=== PATIENT | male | born 1945 | race Caucasian/White ===

== ENCOUNTER 2016-09-16 16:19 | Emergency (ER) | payer MEDICARE ==
[2016-09-16] MEDS ORDERED: Catapres 0.1 MG ONE ×2 (17:55→18:43)
--- NOTE | 2016-09-16 17:56 | ERPHSYRPT ---
- History of Present Illness Time Seen by Provider: 09/16/16 16:45 Source: patient Exam Limitations: no limitations Patient Subjective Stated Complaint: hypertension at home Triage Nursing Assessment: pt brought in today by siblings due to bp elevated. pt is mildly mentally and lives by himself with siblings watching over him. brother states bp 'stroke level' at home. no dificit at present. pt denies pain , agudelo, blurred or double vision. answers all questions without diff. gait steady. Physician History: No changed or missed meds. Absolutely no SX. Timing/Duration: today Severity: mild Associated Symptoms: denies symptoms Allergies/Adverse Reactions: No Known Drug Allergies Allergy (Unverified 09/16/16 16:47) Home Medications: Atorvastatin Calcium [Lipitor 20MG Tablet] 20 mg PO DAILY 09/16/16 [History] Enalapril Maleate [Vasotec] 20 mg PO DAILY 09/16/16 [History] Glipizide 10 mg [Glucotrol 10 MG] 5 mg PO BID 09/16/16 [History] Insulin Detemir [Levemir] 35 unit SQ DAILY 09/16/16 [History] Metformin HCl 1000 mg [Glucophage 1000 MG] 1,000 mg PO BID 09/16/16 [History] Metoprolol Succinate [Toprol Xl] 50 mg PO DAILY 09/16/16 [History] Hx Tetanus, Diphtheria Vaccination/Date Given: Yes Hx Influenza Vaccination/Date Given: No Hx Pneumococcal Vaccination/Date Given: No Immunizations Up to Date: Yes - Review of Systems Constitutional: No Symptoms Eyes: No Symptoms Ears, Nose, & Throat: No Symptoms Respiratory: No Symptoms Cardiac: No Symptoms Abdominal/Gastrointestinal: No Symptoms Genitourinary Symptoms: No Symptoms Musculoskeletal: No Symptoms Skin: No Symptoms Neurological: No Symptoms Psychological: No Symptoms Endocrine: No Symptoms Hematologic/Lymphatic: No Symptoms - Past Medical History Pertinent Past Medical History: Yes Cardiac History: Hypertension Endocrine Medical History: Diabetes Type II - Past Surgical History Past Surgical History: No - Social History Smoking Status: Never smoker Exposure to second hand smoke: Yes Drug Use: none Patient Lives Alone: Yes - Nursing Vital Signs Nursing Vital Signs: Initial Vital Signs Temperature 97.5 F Temperature Source Oral Pulse Rate 62 Respiratory Rate 18 Blood Pressure 176/96 Pain Intensity 0 - Physical Exam SpO2: 97 Oxygen Delivery: Room Air - Course Nursing assessment & vital signs reviewed: Yes - Progress Progress: improved Counseled pt/family regarding: need for follow-up (PCP 1 day) - Departure Time of Disposition: 18:00 Departure Disposition: Home Clinical Impression: Hypertension Qualifiers: Hypertension type: unspecified secondary hypertension Qualified Code(s): I15.9 - Secondary hypertension, unspecified; I15 - Secondary hypertension Condition: Stable Critical Care Time: No
[2016-09-16] MEDS ORDERED: Catapres 0.1 MG PO ONE ×2 (17:57→18:41)
[2016-09-16 19:11] VITALS: BP 186/90; PULSE 76; O2SAT 100
== END 2016-09-16 19:10 | disposition home or self-care (01) ==
LOC: ED 16:19
DX: I15.9 Secondary hypertension, unspecified (principal); E11.9 Type 2 diabetes mellitus without complications; I10 Essential (primary) hypertension; Z79.899 Other long term (current) drug therapy
CPT/HCPCS: 36415; 80048; 83036; 99283

== ENCOUNTER 2022-07-25 11:07 | Inpatient (IN) | payer MEDICARE ==
[2022-07-25 11:51] LABS: Hematocrit 47.1 % (42-50); Hemoglobin 15.6 g/dL (12.5-18.0); Mean Cell Volume 91.5 fL (78-100); Mean Corpuscular Hemoglobin 30.3 pg (26-32); Mean Corpuscular Hgb Concent. 33.1 g/dL (32-36); Mean Platelet Volume 12.3 fL (7.5-11.0); Platelet Count 134 x10^3/uL (150-450); Red Blood Count 5.15 x10^6/uL (4.1-5.6); Red Cell Distribution Width 12.7 % (11.5-14.0); White Blood Count 17.5 x10^3/uL (4.0-10.5)
[2022-07-25] MEDS ORDERED: Sodium Chloride 0.9% 1000 ML 1,000 ML IV STA (11:56)
[2022-07-25] MEDS ORDERED: Sodium Chloride 0.9% 1000 ML 1,000 ML ONE ×2 (12:00→13:19)
[2022-07-25 12:04] LABS: ALBUMIN 4.2 g/dL (3.5-5.0); ANION GAP 17.4 MEQ/L (5-15); BILIRUBIN,TOTAL 1.1 mg/dL (0.2-1.3); Calcium 8.9 mg/dL (8.4-10.2); Creatinine 1 1.49 mg/dL (0.66-1.25); EST GLOMERULAR FILTRATION RATE 48.7 ML/MIN
[2022-07-25 12:07] LABS: Potassium 6.5 mmol/L (3.5-5.1)
[2022-07-25] MEDS ORDERED: HUMULIN R IV ONE (12:11)
[2022-07-25] MEDS ORDERED: Calcium Gluconate 10% 1000 MG IV ONE ×2 (12:11→12:41)
[2022-07-25] MEDS ORDERED: Kayexylate 15 GM/60 ML PO ONE (12:11)
[2022-07-25] MEDS ORDERED: SODIUM BICARBONATE 50 MEQ/50 ML ABBOJECT IV ONE ×2 (12:11→12:43)
[2022-07-25] MEDS ORDERED: D50W 50 ml Abboject IV ONE ×2 (12:11→12:43)
[2022-07-25 12:36] LABS: PROCALCITONIN 0.554 ng/mL (0.030-0.080)
[2022-07-25] MEDS ORDERED: Kayexylate 15 GM/60 ML ONE (12:42)
[2022-07-25] MEDS ORDERED: HUMULIN R ONE (12:42)
[2022-07-25] MEDS ORDERED: PIPERACILLIN/TAZOBACTAM 3.375 GM in Sodium Chloride 100ML MINI-BAG PLUS 100 ML IV ONE (13:06)
[2022-07-25] MEDS ORDERED: CLINDAMYCIN-D5W 600 MG/50 ML*** 600 MG/50 ML BAG IV STA ×2 (13:06→14:20)
[2022-07-25] MEDS ORDERED: PIPERACILLIN/TAZOBACTAM IV ONE (13:09)
[2022-07-25] MEDS ORDERED: Sodium Chloride 100ML MINI-BAG PLUS 100 ML IV ONE (13:09)
--- NOTE | 2022-07-25 13:12 | ERPHSYRPT ---
- History of Present Illness Time Seen by Provider: 07/25/22 11:55 Source: patient Exam Limitations: physical impairment Patient Subjective Stated Complaint: Patient fell at home and could not get up on his own. Patient's brother who lives next door called for the ambulance to assist him up. Ambulance then brought patient here to be evaluated. Patient denies any pain and is unable to state how or why he fell. Patient currently has no complaints. Ambulance personel state that patient is "special needs" and that brother is on his way here to be with patient. Triage Nursing Assessment: Patient is alert to self and place. Patient with noted forceful breathing out of his nose. No cough noted. Lower right leg is noted to be purple/pink in color and cool to touch; pedal pulse present with doppler. Inner right lower leg and posterior right lower leg with burst blisters noted. LLE is warm to touch. BLE with 2+ pitting edema noted. Patient is able to EDWARDS WNL without difficulties. Patient cooperative with staff. Patient is diaphoretic. Physician History: 77 years old male with history of hypertension, hyperlipidemia, diabetes mellitus, mentally not very sound lives alone and brother helps him with routine activities was found sitting on the floor with legs crossed when brother went this morning to give him his medications. Patient is not in any distress, denies pain anywhere. Moving all 4 extremities. No nausea vomiting or difficulty breathing. At his baseline otherwise but does have swelling and redness of right lower extremity which brother think is new overnight. Occurred: this morning Reason for Fall: unknown Injuries/Pain Location: lower Loss of Consciousness: no loss of consciousness Severity of Pain-Max: none Severity of Pain-Current: none Modifying Factors: Improves With: nothing Associated Symptoms (Fall): extremity injury, No abdominal pain, No confusion, No seizures, No shortness of breath, No slurred speech, No vision changes Allergies/Adverse Reactions: No Known Drug Allergies Allergy (Verified 07/25/22 11:11) Home Medications: Amlodipine Besylate 5 mg [Norvasc 5 mg] 1 tab PO DAILY 07/25/22 [History] Atorvastatin Calcium [Lipitor 20MG Tablet] 1 tab PO HS 07/25/22 [History] Benazepril HCl [Lotensin] 1 tab PO DAILY 07/25/22 [History] Carvedilol [Coreg ] 1 tab PO BID 07/25/22 [History] Glipizide 10 mg [Glucotrol 10 MG] 1 tab PO BID 07/25/22 [History] Sitagliptin Phosphate 50 MG [Januvia 50 MG] 1 tab PO DAILY 07/25/22 [History] Hx Tetanus, Diphtheria Vaccination/Date Given: (unknown) Hx Influenza Vaccination/Date Given: (unknown) Hx Pneumococcal Vaccination/Date Given: (unknown) Immunizations Up to Date: (unknown) Travel Risk - International Travel Have you traveled outside of the country in past 3 weeks: No - Coronavirus Screening Are you exhibiting any of the following symptoms?: No Close contact with a COVID-19 positive Pt in past 14-21 Days: No - Vaccine Status Have you recieved a Covid-19 vaccination: (UNKNOWN) - Review of Systems Constitutional: No Symptoms Eyes: No Symptoms Ears, Nose, & Throat: No Symptoms Respiratory: No Symptoms Cardiac: No Symptoms Abdominal/Gastrointestinal: No Symptoms Genitourinary Symptoms: No Symptoms Musculoskeletal: Fall, Injury Skin: Cellulitis Neurological: No Symptoms Immunological/Allergic: No Symptoms - Past Medical History Pertinent Past Medical History: Yes Cardiac History: High Cholesterol, Hypertension Endocrine Medical History: Diabetes Type II - Past Surgical History Past Surgical History: No Other Surgical History: Patient denies surgeries - Social History Smoking Status: Never smoker Exposure to second hand smoke: No Drug Use: none Patient Lives Alone: Yes (brother next door) - Nursing Vital Signs Nursing Vital Signs: Initial Vital Signs Temperature 98 F 07/25/22 11:15 Pulse Rate 83 07/25/22 11:15 Respiratory Rate 26 H 07/25/22 11:15 Blood Pressure 196/102 07/25/22 11:15 O2 Sat by Pulse Oximetry 95 07/25/22 11:15 Pain Scale Pain Intensity 0 - Jorge Coma Score Best Eye Response ([place]): (4) open spontaneously Best Verbal Response (Jorge): (5) oriented Best Motor Response (Jorge): (6) obeys commands Jorge Total: 15 - Physical Exam General Appearance: no apparent distress, alert Head Injury: no evidence of injury, No active bleeding, No Eng's Sign, No contusions, No tenderness Eye Exam: PERRL/EOMI, eyes nml inspection ENT Exam: airway nml, No evidence of ENT injury, No dental injury Neck Exam: supple, trachea midline, full range of motion, normal alignment Respiratory/Chest Exam: normal breath sounds, respiratory distress, No chest tenderness Cardiovascular Exam: normal heart sounds, regular rate/rhythm Gastrointestinal Exam: soft, normal bowel sounds, No tenderness Back Exam: normal inspection, normal range of motion, No CVA tenderness Extremity Exam: normal range of motion, inflammation (Right lower extremity diffuse erythema with minimal tenderness, superficial skin breakdown, mild increased temperature. No bony tenderness.) Neurologic Exam: alert, oriented x 3, cooperative, [employer] II-XII nml as tested, se nsation nml, motor deficits, No normal mood/affect SpO2 Interpretation: normal SpO2: 93 O2 Delivery: Room Air Ordered Tests: Active Orders 24 hr Category Date Time Status IV Insertion STAT Care 07/25/22 11:56 Active NPO (ED) STAT Care 07/25/22 11:56 Active CERVICAL SPINE WO CONTRAST [CT] Stat Exams 07/25/22 11:57 Taken CHEST 1 VIEW (PORTABLE) Stat Exams 07/25/22 11:56 Taken HEAD WITHOUT CONTRAST [CT] Stat Exams 07/25/22 11:57 Taken LOWER LEG Stat Exams 07/25/22 12:00 Taken BLOOD CULTURE Stat Lab 07/25/22 12:45 Received BNP [NT PRO BNP] Stat Lab 07/25/22 11:57 Completed CBC Stat Lab 07/25/22 11:37 Completed CK (IN-HOUSE) [CK-Creatinine Phosphokinase] Stat Lab 07/25/22 11:57 Completed CMP Stat Lab 07/25/22 11:37 Completed LIPASE Stat Lab 07/25/22 11:57 Completed Lactic Acid Stat Lab 07/25/22 11:45 Completed MAG [MAGNESIUM] Stat Lab 07/25/22 11:57 Completed NT PRO BNP Stat Lab 07/25/22 11:37 Completed PROCALCITONIN Stat Lab 07/25/22 11:57 Completed TROPONIN Q4H Lab 07/25/22 12:00 Completed TROPONIN Q4H Lab 07/25/22 16:00 Ordered TROPONIN Q4H Lab 07/25/22 20:00 Ordered UA W/RFX CULTURE Stat Lab 07/25/22 Ordered Medication Summary Generic Name Dose Route Start Last Admin Trade Name Freq PRN Reason Stop Dose Admin Sodium Chloride 1,000 mls @ 125 mls/hr 07/25/22 13:15 Sodium Chloride 0.9% 1000 Ml IV 08/24/22 13:14 .Q8H ESPERANZA Clindamycin HCl/Dextrose 600 mg in 50 mls @ 100 mls/hr 07/25/22 13:06 Clindamycin-D5w 600 Mg/50 Ml IV 07/25/22 13:35 STAT STA Piperacillin Sod/Tazobactam 100 mls @ 200 mls/hr 07/25/22 13:06 07/25/22 13:09 Sod 3.375 gm/ Sodium Chloride IV 07/25/22 13:35 200 mls/hr STAT ONE Administration Discontinued Medications Generic Name Dose Route Start Last Admin Trade Name Freq PRN Reason Stop Dose Admin Calcium Gluconate 1,000 mg 07/25/22 12:11 07/25/22 12:45 Calcium Gluconate 1000 Mg/10 Ml Vial IV 07/25/22 12:12 1,000 mg STAT ONE Administration Calcium Gluconate Confirm 07/25/22 12:41 Calcium Gluconate 1000 Mg/10 Ml Vial Administered 07/25/22 12:42 Dose 1,000 mg IV .STK-MED ONE Dextrose 50 ml 07/25/22 12:11 07/25/22 12:52 Dextrose 50%-Water 50 Ml Abboject IV 07/25/22 12:12 50 ml STAT ONE Administration Dextrose Confirm 07/25/22 12:43 Dextrose 50%-Water 50 Ml Abboject Administered 07/25/22 12:44 Dose 50 ml IV .STK-MED ONE Sodium Chloride 1,000 mls @ 999 mls/hr 07/25/22 11:56 07/25/22 13:08 Sodium Chloride 0.9% 1000 Ml IV 07/25/22 12:56 Infused .Q1H1M STA Infusion Sodium Chloride Confirm 07/25/22 12:00 Sodium Chloride 0.9% 1000 Ml Administered 07/25/22 12:01 Dose 1,000 mls @ ud .ROUTE .STK-MED ONE Sodium Chloride Confirm 07/25/22 13:09 Sodium Chloride 100ml Mini-Bag Plus Administered 07/25/22 13:10 Dose 100 mls @ ud IV .STK-MED ONE Insulin Human Regular 10 unit 07/25/22 12:11 07/25/22 12:55 Insulin Regular, Human 1 Unit IV 07/25/22 12:12 10 unit STAT ONE Administration Insulin Human Regular Confirm 07/25/22 12:42 Insulin Regular, Human 1 Unit Administered 07/25/22 12:43 Dose 10 unit .ROUTE .STK-MED ONE Piperacillin Sod/Tazobactam Sod Confirm 07/25/22 13:09 Piperacillin/Tazobactam Sodium 3.375 Gm Vial Administered 07/25/22 13:10 Dose 3.375 gm IV .STK-MED ONE Sodium Bicarbonate 50 meq 07/25/22 12:11 07/25/22 12:49 Sodium Bicarbonate 1 Meq/Ml 50ml Syringe IV 07/25/22 12:12 50 meq STAT ONE Administration Sodium Bicarbonate Confirm 07/25/22 12:43 Sodium Bicarbonate 1 Meq/Ml 50ml Syringe Administered 07/25/22 12:44 Dose 50 meq IV .STK-MED ONE Sodium Polystyrene Sulfonate 30 g 07/25/22 12:11 07/25/22 12:57 Sodium Polystyrene Sulfonate 15 G/60 Ml Bottle PO 07/25/22 12:12 30 g STAT ONE Administration Sodium Polystyrene Sulfonate Confirm 07/25/22 12:42 Sodium Polystyrene Sulfonate 15 G/60 Ml Bottle Administered 07/25/22 12:43 Dose 30 g .ROUTE .STK-MED ONE Lab/Rad Data: Laboratory Result Diagrams 07/25/22 11:37 07/25/22 11:37 Laboratory Results 07/25/22 07/25/22 07/25/22 Range/Units 12:00 11:57 11:45 WBC (4.0-10.5) x10^3/uL RBC (4.1-5.6) x10^6/uL Hgb (12.5-18.0) g/dL Hct (42-50) % MCV (78-100) fL MCH (26-32) pg MCHC (32-36) g/dL RDW (11.5-14.0) % Plt Count (150-450) x10^3/uL MPV (7.5-11.0) fL Sodium (137-145) mmol/L Potassium (3.5-5.1) mmol/L Chloride (98-107) mmol/L Carbon Dioxide (22-30) mmol/L Anion Gap (5-15) MEQ/L BUN (9-20) mg/dL Creatinine (0.66-1.25) mg/dL Estimated GFR ML/MIN Glucose (74-106) mg/dL Lactic Acid 3.6 H (0.4-2.0) Calcium (8.4-10.2) mg/dL Magnesium 2.0 (1.6-2.3) mg/dL Total Bilirubin (0.2-1.3) mg/dL AST (17-59) U/L ALT (0-50) U/L Alkaline Phosphatase (38-126) U/L Creatine Kinase 2835 H (55-170) U/L Troponin I 0.014 (0.000-0.034) ng/mL NT-Pro-B Natriuret Pep 163 (0-1800) pg/mL Serum Total Protein (6.3-8.2) g/dL Albumin (3.5-5.0) g/dL Lipase 95 (23-300) U/L Procalcitonin 0.554 H (0.030-0.080) ng/mL 07/25/22 07/25/22 Range/Units 11:37 11:37 WBC 17.5 H (4.0-10.5) x10^3/uL RBC 5.15 (4.1-5.6) x10^6/uL Hgb 15.6 (12.5-18.0) g/dL Hct 47.1 (42-50) % MCV 91.5 (78-100) fL MCH 30.3 (26-32) pg MCHC 33.1 (32-36) g/dL RDW 12.7 (11.5-14.0) % Plt Count 134 L (150-450) x10^3/uL MPV 12.3 H (7.5-11.0) fL Sodium 136 L (137-145) mmol/L Potassium 6.5 H* (3.5-5.1) mmol/L Chloride 100 (98-107) mmol/L Carbon Dioxide 25 (22-30) mmol/L Anion Gap 17.4 H (5-15) MEQ/L BUN 43 H (9-20) mg/dL Creatinine 1.49 H (0.66-1.25) mg/dL Estimated GFR 48.7 ML/MIN Glucose 333 H (74-106) mg/dL Lactic Acid (0.4-2.0) Calcium 8.9 (8.4-10.2) mg/dL Magnesium (1.6-2.3) mg/dL Total Bilirubin 1.10 (0.2-1.3) mg/dL AST 108 H (17-59) U/L ALT 37 (0-50) U/L Alkaline Phosphatase 155 H (38-126) U/L Creatine Kinase (55-170) U/L Troponin I (0.000-0.034) ng/mL NT-Pro-B Natriuret Pep 156 (0-1800) pg/mL Serum Total Protein 8.0 (6.3-8.2) g/dL Albumin 4.2 (3.5-5.0) g/dL Lipase (23-300) U/L Procalcitonin (0.030-0.080) ng/mL - Progress Progress: unchanged Progress Note: 07/25/22 13:10 Patient is not in any distress. Does have right lower extremity swelling and redness with some skin breakdown. Seems like he is developing cellulitis. He is given fluid bolus, work-up showed white count of 17 with a lactate of 3.5 and procalcitonin 0.55, given a dose of Zosyn and clindamycin. Chemistry showed potassium of 6.5 and EKG no tall T waves noted. Given medication per protocol with calcium, bicarb, dextrose, insulin and Kayexalate. CT head and cervical spine negative for any acute trauma related findings. Chest x-ray no obvious cardiopulmonary findings reviewed by me, official report is pending. X-rays right lower leg no obvious fracture dislocation reviewed by me, official report is pending again. Patient has a CK level up 2835 with a creatinine of 1.4 and BUN of 43. Will place Israel catheter for intake output monitoring, continue with fluids. Discussed with Dr. Maldonado, reviewed history, work-up and patient accepted for admission. 07/25/22 13:13 Discussed with : Lynn Will see patient in: hospital (observation) Counseled pt/family regarding: lab results, diagnosis, rad results - Departure Departure Disposition: Observation Clinical Impression: Fall, Cellulitis, leg, Rhabdomyolysis, Sepsis, Hypokalemia Condition: Stable Critical Care Time: No Referrals: ISAAK RODRÍGUEZ [Primary Care Provider] - Follow up/PCP as directed Instructions: Rhabdomyolysis
[2022-07-25] MEDS ORDERED: Sodium Chloride 0.9% 1000 ML 1,000 ML IV SCH (13:15)
[2022-07-25] MEDS ORDERED: CLINDAMYCIN-D5W 600 MG/50 ML*** 600 MG/50 ML BAG IV ONE (13:20)
[2022-07-25 13:34] LABS: INFLUENZA A NEGATIVE (NEGATIVE); INFLUENZA B NEGATIVE (NEGATIVE); RESPIRATORY SYNCTIAL VIRUS NEGATIVE (Negative); SARS-CoV-2 Xpert Express NEGATIVE (NEGATIVE)
[2022-07-25 14:05] LABS: Appearance CLEAR (CLEAR); Bilirubin NEGATIVE (NEGATIVE); Dipstick done @ ? MAIN LAB; Glucose >=1000 mg/dL (NEGATIVE); Ketones TRACE (NEGATIVE); Mucus SLIGHT /HPF (NEGATIVE); Nitrite NEGATIVE (NEGATIVE); Protein,Urine Dip >=300 (Negative); RBC LARGE Ery/ul (0-5); Specific Gravity 1.025 (1.005-1.025); Urobilinogen 0.2 mg/dL (0-1); WBC 0-2 /HPF (0-5)
[2022-07-25 14:06] LABS: Bacteria RARE /HPF (NEGATIVE); Urine Cultured Indicated? YES
[2022-07-25] MEDS ORDERED: Zofran 4 MG/2 ML VIAL IV PRN (14:20)
[2022-07-25] MEDS ORDERED: TYLENOL 325 MG PO PRN (14:20)
[2022-07-25] MEDS: PROTONIX 40 MG IV IV SCH (14:55)
--- NOTE | 2022-07-25 16:25 | XRAY ---
Indication: Status post fall. Multiple contiguous axial images obtained through the head without contrast. Comparison: None Age-appropriate global atrophy, moderate periventricular degenerative micro-ischemia bilaterally, and old left posterior parietal/left frontal infarcts. No acute intracranial hemorrhage, abnormal extra-axial fluid collection, or mass effect. Fourth ventricle is midline without hydrocephalus. Bony calvarium intact. Visualized paranasal sinuses and mastoid air cells are clear. 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 Comment: Preliminary interpretation made by [facility]. No critical discrepancy.
--- NOTE | 2022-07-25 16:27 | XRAY ---
Indication: Status post fall. Multiple contiguous axial images obtained through the cervical spine. Sagittal and coronal reformatted images obtained. Comparison: None Axial images negative for acute fracture, suspicious bone lesions, or spinal canal stenosis. Minimal/mild C3-T1 degenerative endplate spurring and mild/moderate multilevel bilateral degenerative facet hypertrophy. Also moderate atlantoaxial degenerative changes. Sagittal and coronal reformatted images demonstrates mild lordotic straightening, positional versus paraspinal spasm. Minimal multilevel degenerative disc space narrowing. No acute compression fracture, subluxation, or jumped facet. Normal appearing craniocervical junction. Visualized noncontrasted soft tissues demonstrates moderate bilateral carotid calcifications. Lung apices clear. Impression: 1. Cervical lordotic straightening, positional versus paraspinal spasm. Negative acute fracture/subluxation. 2. Multilevel degenerative changes. Comment: Preliminary interpretation made by C. No critical discrepancy.
--- NOTE | 2022-07-25 16:27 | XRAY ---
Indication: Status post fall. Comparison: None Portable chest demonstrates subtle bilateral mid to lower lung interstitial alveolar opacities and tiny right infrahilar calcified nodes. Heart not enlarged. Bony thorax intact with mild osteopenia and degenerative changes. Interstitial alveolar opacities not reported by interpretating ER clinician. Telephone report given to Dr. Hicks at 1625 hrs on Jul 25, 2022.
--- NOTE | 2022-07-25 16:35 | XRAY ---
Indication: Status post fall. Comparison: None 2 view right lower leg demonstrates osteopenia, tiny suprapatella spurring, small plantar heel spur, mild diffuse soft tissue swelling/edema, and minimal vascular calcifications. Fracture base 5th metatarsal of uncertain chronicity. No other bony, articular, or soft tissue abnormalities. Comment: 5th metatarsal fracture not reported by interpreting ER clinician. Telephone report was given to Dr. Hicks 1625 hrs. on July 25, 2022.
[2022-07-25 17:06] LABS: Calcium 9.1 mg/dL (8.4-10.2); Creatinine 1 1.56 mg/dL (0.66-1.25); EST GLOMERULAR FILTRATION RATE 46.2 ML/MIN
[2022-07-25] MEDS: HUMALOG SQ PRN (17:24)
[2022-07-25] MEDS ORDERED: PIPERACILLIN/TAZOBACTAM 3.375 GM in Sodium Chloride 100ML MINI-BAG PLUS 100 ML IV SCH (18:00)
[2022-07-25] MEDS: Piperacillin/Tazobactam 2.25 GM 2.25 GM in Sodium Chloride 100ML MINI-BAG PLUS 100 ML IV SCH (18:03)
[2022-07-25] MEDS ORDERED: DUONEB 0.5-3 MG/3 ml Neb IH SCH (19:00)
[2022-07-25] MEDS: Sodium Chloride 0.9% 1000 ML 1,000 ML IV SCH ×2 (20:16→23:12)
[2022-07-25] MEDS: Glucotrol 5 MG PO SCH (21:43)
[2022-07-25] MEDS ORDERED: Coreg 3.125 MG PO ONE (22:00)
[2022-07-26] MEDS: Piperacillin/Tazobactam 2.25 GM 2.25 GM in Sodium Chloride 100ML MINI-BAG PLUS 100 ML IV SCH ×4 (00:07→19:39)
[2022-07-26 06:34] LABS: Absolute Neutrophil Ct (ANC) 11.42 x10^3/uL (1.4-6.9); Basophil (Absolute #) 0.03 x10^3/uL (0-0.4); Eosinophil % 0.1 % (0.00-5.0); Eosinophil (Absolute #) 0.02 x10^3/uL (0-0.5); Hematocrit 37.9 % (42-50); Hemoglobin 12.3 g/dL (12.5-18.0); Lymphocytes % 11.2 % (24.0-44.0); Mean Cell Volume 92.4 fL (78-100); Mean Corpuscular Hgb Concent. 32.5 g/dL (32-36); Mean Platelet Volume 11.4 fL (7.5-11.0); Monocyte (Absolute #) 1.15 x10^3/uL (0.0-1.3); Monocytes % 8.1 % (0.0-12.0); Platelet Count 126 x10^3/uL (150-450); Red Cell Distribution Width 12.9 % (11.5-14.0); White Blood Count 14.3 x10^3/uL (4.0-10.5)
[2022-07-26 07:02] LABS: ALBUMIN 2.8 g/dL (3.5-5.0); ANION GAP 10.5 MEQ/L (5-15); Creatinine 1 1.72 mg/dL (0.66-1.25); EST GLOMERULAR FILTRATION RATE 41.3 ML/MIN; Potassium 3.4 mmol/L (3.5-5.1); Total Protein 5.8 g/dL (6.3-8.2)
[2022-07-26] MEDS: Sodium Chloride 0.9% 1000 ML 1,000 ML IV SCH ×3 (08:17→23:53)
[2022-07-26] MEDS ORDERED: Lantus Insulin SQ SCH (10:00)
[2022-07-26] MEDS ORDERED: Lotensin PO SCH (10:00)
[2022-07-26] MEDS ORDERED: Januvia 50 MG PO SCH (10:00)
[2022-07-26] MEDS ORDERED: NON-FORMULARY ITEM (Insulin Glargine,Hum.Rec.Anlog [Toujeo Solostar] 300 UNIT/ML Insuln.Pe SQ SCH (10:00)
[2022-07-26] MEDS ORDERED: NORVASC 5 MG PO SCH (10:00)
[2022-07-26] MEDS ORDERED: Sodium Chloride 0.9% 1000 ML 1,000 ML IV STA ×2 (10:06→18:04)
[2022-07-26] MEDS: Glucotrol 5 MG PO SCH ×2 (10:39→18:43)
[2022-07-26] MEDS: Coreg PO SCH ×2 (10:43→21:31)
[2022-07-26] MEDS: PROTONIX 40 MG IV IV SCH (10:44)
[2022-07-26] MEDS: HUMALOG SQ PRN ×2 (13:59→18:23)
[2022-07-26 16:27] LABS: ANION GAP 11.7 MEQ/L (5-15); Calcium 7.8 mg/dL (8.4-10.2); Creatinine 1 1.69 mg/dL (0.66-1.25); EST GLOMERULAR FILTRATION RATE 42.1 ML/MIN
[2022-07-26] MEDS ORDERED: NORVASC 5 MG PO ONE (18:04)
[2022-07-26] MEDS ORDERED: Apresoline 25 MG TABLET PO ONE (18:06)
[2022-07-26] MEDS: Apresoline 25 MG TABLET PO SCH (21:32)
[2022-07-27] MEDS: Piperacillin/Tazobactam 2.25 GM 2.25 GM in Sodium Chloride 100ML MINI-BAG PLUS 100 ML IV SCH ×5 (00:32→23:38)
[2022-07-27 04:43] LABS: Absolute Neutrophil Ct (ANC) 11.02 x10^3/uL (1.4-6.9); Basophil (Absolute #) 0.03 x10^3/uL (0-0.4); Eosinophil % 0.9 % (0.00-5.0); Eosinophil (Absolute #) 0.12 x10^3/uL (0-0.5); Hematocrit 41.8 % (42-50); Hemoglobin 13.9 g/dL (12.5-18.0); Lymphocyte (Absolute #) 1.41 x10^3/uL (1.0-4.6); Lymphocytes % 10.2 % (24.0-44.0); Mean Cell Volume 90.7 fL (78-100); Mean Corpuscular Hemoglobin 30.2 pg (26-32); Mean Corpuscular Hgb Concent. 33.3 g/dL (32-36); Mean Platelet Volume 11.9 fL (7.5-11.0); Monocyte (Absolute #) 1.24 x10^3/uL (0.0-1.3); Monocytes % 8.9 % (0.0-12.0); Neutrophil % 79.4 % (36.0-66.0); Platelet Count 118 x10^3/uL (150-450); Red Blood Count 4.61 x10^6/uL (4.1-5.6); Red Cell Distribution Width 13.2 % (11.5-14.0); White Blood Count 13.9 x10^3/uL (4.0-10.5)
[2022-07-27 05:09] LABS: ANION GAP 10.2 MEQ/L (5-15); Calcium 8.3 mg/dL (8.4-10.2); Creatinine 1 1.4 mg/dL (0.66-1.25); EST GLOMERULAR FILTRATION RATE 52.4 ML/MIN; Potassium 3.8 mmol/L (3.5-5.1)
[2022-07-27] MEDS: Coreg PO SCH (07:31)
[2022-07-27] MEDS: NORVASC 5 MG PO SCH (07:31)
[2022-07-27] MEDS: Apresoline 25 MG TABLET PO SCH ×3 (07:31→21:26)
[2022-07-27] MEDS: PROTONIX 40 MG IV IV SCH (07:32)
[2022-07-27] MEDS: Sodium Chloride 0.9% 1000 ML 1,000 ML IV SCH ×2 (09:16→16:56)
[2022-07-27] MEDS: Glucotrol 5 MG PO SCH (09:58)
--- NOTE | 2022-07-27 10:56 | XRAY ---
Indication: Cellulitis. Two-dimensional sonogram and color Doppler imaging of the major venous vessels of the right leg performed. Comparison: None No thrombus seen in the examined deep venous vessels of the right leg including greater saphenous vein. Veins demonstrate normal compressibility. Venous waveforms are normal with and without augmentation. Impression: Right leg negative for DVT.
--- NOTE | 2022-07-27 15:58 | PCM.CONS ---
Podiatry HPI - Consult Date of Consultation Date: 07/27/22 Reason for Consult: Cellulitis + 5th metatarsal fracture Consulting Provider: LONNIE HOOK DPM - [facility] History of Present Illness: Shalom is a very pleasant 77-year-old male who presents with admission for a fall and sepsis with no identifiable source. Patient fell on Wednesday and was found by his brother who lives next door brought to the emergency room and determined to have sepsis and cellulitis to the right lower extremity. X-rays were taken demonstrating 1/5 metatarsal fracture for which I was consulted for. Patient does have minimal pitting edema to the right lower extremity patient's subjective examination is limited due to patient's mental status. No other pedal complaints at this time Medications & Allergies Home Medications: Home Medication List Amlodipine Besylate 5 mg [Norvasc 5 mg] 1 tab PO DAILY 07/25/22 [History Confirmed 07/25/22] Atorvastatin Calcium [Lipitor 20MG Tablet] 1 tab PO HS 07/25/22 [History Confirmed 07/25/22] Benazepril HCl [Lotensin] 1 tab PO DAILY 07/25/22 [History Confirmed 07/25/22] Carvedilol [Coreg ] 6.25 mg PO BID 07/25/22 [History Confirmed 07/25/22] Glipizide 10 mg [Glucotrol 10 MG] 1 tab PO BID 07/25/22 [History Confirmed 07/25/22] Insulin Glargine,Hum.rec.anlog [Fareed Brush] 50 unit SQ DAILY 07/25/22 [History Confirmed 07/25/22] Sitagliptin Phosphate 50 MG [Januvia 50 MG] 1 tab PO DAILY 07/25/22 [History Confirmed 07/25/22] Allergies/Adverse Reactions: Allergies Allergy/AdvReac Type Severity Reaction Status Date / Time No Known Drug Allergies Allergy Verified 07/25/22 11:11 - Past Medical History Past Medical History: Yes Cardiac History: High Cholesterol, Hypertension Endocrine Medical History: Diabetes Type II - Past Surgical History Past Surgical History: No Other Surgical History: Patient denies surgeries - Social History Smoking Status: Former smoker Exposure to second hand smoke: No Alcohol: None Drug Use: none Physical Exam - General General Appearance: no apparent distress - Neuro Neurologic: Epicritic and protopathic - Vascular Peripheral Pulses: Posterior tibialis: 2+, Dorsalis-Pedis: 2+ Capillary Refill Time: < 3 seconds Hair Growth: Symmetrical and Bilateral Varicosities: Positive Edema: Pitting Edema Degree: 2+ Skin: Supple, not atrophic Skin Temperature: Warm to touch - Muscular Muscle Strength: Pain with (Pain with provocation eversion right foot) Digital Deformity: no digital deformities - Narrative Narrative Physical Exam: Podiatry Physical Exam Cellulitis noticed to the right leg extending from the Rd malleoli are area to the mid calf. 2 large blisters to the posterior medial aspect of the right leg proximal large blister has been compressed. Brawny edema noted to the right lower extremity. Results - Labs Lab/Micro Results: Lab Results-Last 24 Hours 07/26/22 07/26/22 07/26/22 Range/Units 16:12 16:41 20:25 WBC (4.0-10.5) x10^3/uL RBC (4.1-5.6) x10^6/uL Hgb (12.5-18.0) g/dL Hct (42-50) % MCV (78-100) fL MCH (26-32) pg MCHC (32-36) g/dL RDW (11.5-14.0) % Plt Count (150-450) x10^3/uL MPV (7.5-11.0) fL Gran % (36.0-66.0) % Immature Gran % (Auto) (0.00-0.4) % Nucleat RBC Rel Count (0.00-0.1) % Eos # (Auto) (0-0.5) x10^3/uL Immature Gran # (Auto) (0.00-0.03) x10^3u/L Absolute Lymphs (auto) (1.0-4.6) x10^3/uL Absolute Monos (auto) (0.0-1.3) x10^3/uL Absolute Nucleated RBC (0.00-0.01) x10^3u/L Lymphocytes % (24.0-44.0) % Monocytes % (0.0-12.0) % Eosinophils % (0.00-5.0) % Basophils % (0.0-0.4) % Absolute Granulocytes (1.4-6.9) x10^3/uL Basophils # (0-0.4) x10^3/uL Sodium 140 (137-145) mmol/L Potassium 4.0 (3.5-5.1) mmol/L Chloride 109 H (98-107) mmol/L Carbon Dioxide 23 (22-30) mmol/L Anion Gap 11.7 (5-15) MEQ/L BUN 41 H (9-20) mg/dL Creatinine 1.69 H (0.66-1.25) mg/dL Estimated GFR 42.1 ML/MIN Glucose 252 H (74-106) mg/dL POC Glucometer 210 H 159 H (74 to 106) mg/dL Calcium 7.8 L (8.4-10.2) mg/dL Creatine Kinase 5404 H (55-170) U/L 07/27/22 07/27/22 07/27/22 Range/Units 04:45 04:45 07:35 WBC 13.9 H (4.0-10.5) x10^3/uL RBC 4.61 (4.1-5.6) x10^6/uL Hgb 13.9 (12.5-18.0) g/dL Hct 41.8 L (42-50) % MCV 90.7 (78-100) fL MCH 30.2 (26-32) pg MCHC 33.3 (32-36) g/dL RDW 13.2 (11.5-14.0) % Plt Count 118 L (150-450) x10^3/uL MPV 11.9 H (7.5-11.0) fL Gran % 79.4 H (36.0-66.0) % Immature Gran % (Auto) 0.4 (0.00-0.4) % Nucleat RBC Rel Count 0.0 (0.00-0.1) % Eos # (Auto) 0.12 (0-0.5) x10^3/uL Immature Gran # (Auto) 0.06 H (0.00-0.03) x10^3u/L Absolute Lymphs (auto) 1.41 (1.0-4.6) x10^3/uL Absolute Monos (auto) 1.24 (0.0-1.3) x10^3/uL Absolute Nucleated RBC 0.00 (0.00-0.01) x10^3u/L Lymphocytes % 10.2 L (24.0-44.0) % Monocytes % 8.9 (0.0-12.0) % Eosinophils % 0.9 (0.00-5.0) % Basophils % 0.2 (0.0-0.4) % Absolute Granulocytes 11.02 H (1.4-6.9) x10^3/uL Basophils # 0.03 (0-0.4) x10^3/uL Sodium 142 (137-145) mmol/L Potassium 3.8 (3.5-5.1) mmol/L Chloride 110 H (98-107) mmol/L Carbon Dioxide 26 (22-30) mmol/L Anion Gap 10.2 (5-15) MEQ/L BUN 31 H (9-20) mg/dL Creatinine 1.40 H (0.66-1.25) mg/dL Estimated GFR 52.4 ML/MIN Glucose 121 H (74-106) mg/dL POC Glucometer 83 (74 to 106) mg/dL Calcium 8.3 L (8.4-10.2) mg/dL Creatine Kinase 5475 H (55-170) U/L 07/27/22 Range/Units 12:00 WBC (4.0-10.5) x10^3/uL RBC (4.1-5.6) x10^6/uL Hgb (12.5-18.0) g/dL Hct (42-50) % MCV (78-100) fL MCH (26-32) pg MCHC (32-36) g/dL RDW (11.5-14.0) % Plt Count (150-450) x10^3/uL MPV (7.5-11.0) fL Gran % (36.0-66.0) % Immature Gran % (Auto) (0.00-0.4) % Nucleat RBC Rel Count (0.00-0.1) % Eos # (Auto) (0-0.5) x10^3/uL Immature Gran # (Auto) (0.00-0.03) x10^3u/L Absolute Lymphs (auto) (1.0-4.6) x10^3/uL Absolute Monos (auto) (0.0-1.3) x10^3/uL Absolute Nucleated RBC (0.00-0.01) x10^3u/L Lymphocytes % (24.0-44.0) % Monocytes % (0.0-12.0) % Eosinophils % (0.00-5.0) % Basophils % (0.0-0.4) % Absolute Granulocytes (1.4-6.9) x10^3/uL Basophils # (0-0.4) x10^3/uL Sodium (137-145) mmol/L Potassium (3.5-5.1) mmol/L Chloride (98-107) mmol/L Carbon Dioxide (22-30) mmol/L Anion Gap (5-15) MEQ/L BUN (9-20) mg/dL Creatinine (0.66-1.25) mg/dL Estimated GFR ML/MIN Glucose (74-106) mg/dL POC Glucometer 173 H (74 to 106) mg/dL Calcium (8.4-10.2) mg/dL Creatine Kinase (55-170) U/L Microbiology 07/26/22 21:50 Urine Culture - Preliminary Urine, Indwelling Catheter <10K NORMAL SKIN LEOBARDO PROBABLE SKIN CONTAMINANT 07/25/22 13:08 Urine Culture - Final Urine, Void NO GROWTH 07/25/22 12:45 Blood Culture - Preliminary Blood NO GROWTH TO DATE 07/25/22 11:25 Blood Culture - Preliminary Blood NO GROWTH TO DATE Accuchecks Date 07/27/22 Date 07/27/22 Date 07/26/22 Date 07/26/22 Time 12:04 Time 07:39 Time 21:00 - Radiology Impressions Radiology Exams & Impressions: Radiology Procedures Category Date Time Status VENOUS UNILAT/LIMITED EXTREMIT [US] Urgent Exams 07/27/22 10:38 Completed Assessment/Plan (1) Venous insufficiency of right leg Current Visit: Yes Status: Acute Assessment & Plan: Initial patient examination and evaluation. Venous Dopplers taken demonstrating no clotting to the right lower extremity Recommendation at this time is to proceed with compression therapy to the right lower extremity. Dressings consisting of Betadine Adaptic 4 x 4 Unna boot with a compression dressing to the right lower extremity with moderate compression. Will change this dressing Aki and weekly Code(s): I87.2 - VENOUS INSUFFICIENCY (CHRONIC) (PERIPHERAL) (2) Localized edema Current Visit: Yes Status: Acute Code(s): R60.0 - LOCALIZED EDEMA (3) Fracture of fifth metatarsal bone of right foot Current Visit: Yes Status: Acute Assessment & Plan: Radiographs reviewed demonstrating fifth metatarsal fracture avulsion At this time issue does appear to be acute and patient would benefit from ambulation in a short leg Cam walker to the right lower extremity. Code(s): S92.351A - DISP FX OF FIFTH METATARSAL BONE, RIGHT FOOT, INIT (4) Cellulitis, leg Current Visit: Yes Status: Acute Assessment & Plan: Defer to medicine team for antibiotic regimen. Appreciate [facility]
[2022-07-27] MEDS: HUMALOG SQ PRN ×2 (17:43→21:32)
[2022-07-27] MEDS: COREG 12.5 MG PO SCH (21:26)
[2022-07-27] MEDS ORDERED: Coreg PO SCH (22:00)
[2022-07-28] MEDS: Sodium Chloride 0.9% 1000 ML 1,000 ML IV SCH ×2 (01:12→08:06)
[2022-07-28 05:51] LABS: Hematocrit 36.5 % (42-50); Hemoglobin 11.7 g/dL (12.5-18.0); Mean Cell Volume 92.9 fL (78-100); Mean Corpuscular Hemoglobin 29.8 pg (26-32); Mean Corpuscular Hgb Concent. 32.1 g/dL (32-36); Mean Platelet Volume 12.2 fL (7.5-11.0); Platelet Count 97 x10^3/uL (150-450); Red Blood Count 3.93 x10^6/uL (4.1-5.6); White Blood Count 9.1 x10^3/uL (4.0-10.5)
[2022-07-28] MEDS: Piperacillin/Tazobactam 2.25 GM 2.25 GM in Sodium Chloride 100ML MINI-BAG PLUS 100 ML IV SCH ×2 (06:03→11:29)
[2022-07-28 06:29] LABS: ANION GAP 9.2 MEQ/L (5-15); Calcium 7.8 mg/dL (8.4-10.2); Creatinine 1 1.45 mg/dL (0.66-1.25); EST GLOMERULAR FILTRATION RATE 50.3 ML/MIN; Potassium 3.8 mmol/L (3.5-5.1)
[2022-07-28 07:30] LABS: Slide Review YES
[2022-07-28] MEDS: NORVASC 5 MG PO SCH (08:05)
[2022-07-28] MEDS: Apresoline 25 MG TABLET PO SCH ×2 (08:05→15:03)
[2022-07-28] MEDS: PROTONIX 40 MG IV IV SCH (08:05)
[2022-07-28] MEDS: COREG 12.5 MG PO SCH (08:05)
[2022-07-28] MEDS ORDERED: CLONIDINE 0.1 MG TABLET PO PRN (08:41)
[2022-07-28 11:29] VITALS: BP 157/71; PULSE 66; O2SAT 93
[2022-07-28] MEDS: HUMALOG SQ PRN (11:29)
--- NOTE | 2022-07-28 16:59 | PCM.DS ---
Discharge Summary Date of Admission: 07/25/22 14:11 Date of Discharge: 07/28/22 Admitting Physician: MICHELLE BONE Consults: Consults on Case 07/27/22 09:54 Consult Podiatry ROUTINE Primary Care Provider: ISAAK RODRÍGUEZ Allergies Allergies No Known Drug Allergies Allergy (Verified 07/25/22 11:11) Hospital Summary - Vitals & Intake/Output Vital Signs: Vital Signs Temperature 98.2 F 07/28/22 11:28 Pulse Rate 66 07/28/22 11:28 Respiratory Rate 18 07/28/22 11:28 Blood Pressure 157/71 07/28/22 11:28 O2 Sat by Pulse Oximetry 93 L 07/28/22 11:28 Intake & Output: Intake & Output 07/26/22 07/27/22 07/28/22 07/29/22 11:59 11:59 11:59 11:59 Intake Total 3326 6312 5206 700 Output Total 950 6550 3200 Balance 2376 -238 2005 700 Weight 87.4 kg 83.8 kg 83.8 kg - Lab Result Diagrams: 07/28/22 05:10 07/28/22 05:10 Lab Results-Last 24 Hrs: Lab Results-Last 24 Hours 07/27/22 07/28/22 07/28/22 Range/Units 21:28 05:10 05:10 WBC 9.1 (4.0-10.5) x10^3/uL RBC 3.93 L (4.1-5.6) x10^6/uL Hgb 11.7 L (12.5-18.0) g/dL Hct 36.5 L (42-50) % MCV 92.9 (78-100) fL MCH 29.8 (26-32) pg MCHC 32.1 (32-36) g/dL RDW 13.0 (11.5-14.0) % Plt Count 97 L (150-450) x10^3/uL MPV 12.2 H (7.5-11.0) fL Sodium 143 (137-145) mmol/L Potassium 3.8 (3.5-5.1) mmol/L Chloride 112 H (98-107) mmol/L Carbon Dioxide 25 (22-30) mmol/L Anion Gap 9.2 (5-15) MEQ/L BUN 27 H (9-20) mg/dL Creatinine 1.45 H (0.66-1.25) mg/dL Estimated GFR 50.3 ML/MIN Glucose 191 H (74-106) mg/dL POC Glucometer 322 H (74 to 106) mg/dL Calcium 7.8 L (8.4-10.2) mg/dL Creatine Kinase 2442 H (55-170) U/L Slides for Path Review YES 07/28/22 07/28/22 Range/Units 06:42 11:02 WBC (4.0-10.5) x10^3/uL RBC (4.1-5.6) x10^6/uL Hgb (12.5-18.0) g/dL Hct (42-50) % MCV (78-100) fL MCH (26-32) pg MCHC (32-36) g/dL RDW (11.5-14.0) % Plt Count (150-450) x10^3/uL MPV (7.5-11.0) fL Sodium (137-145) mmol/L Potassium (3.5-5.1) mmol/L Chloride (98-107) mmol/L Carbon Dioxide (22-30) mmol/L Anion Gap (5-15) MEQ/L BUN (9-20) mg/dL Creatinine (0.66-1.25) mg/dL Estimated GFR ML/MIN Glucose (74-106) mg/dL POC Glucometer 159 H 292 H (74 to 106) mg/dL Calcium (8.4-10.2) mg/dL Creatine Kinase (55-170) U/L Slides for Path Review Micro Results-Entire Visit: Microbiology 07/26/22 21:50 Urine Culture - Final Urine, Indwelling Catheter <10K NORMAL SKIN LEOBARDO PROBABLE SKIN CONTAMINANT 07/25/22 13:08 Urine Culture - Final Urine, Void NO GROWTH 07/25/22 12:45 Blood Culture - Preliminary Blood NO GROWTH TO DATE 07/25/22 11:25 Blood Culture - Preliminary Blood NO GROWTH TO DATE Accuchecks Date 07/28/22 Date 07/28/22 Time 11:26 Time 07:08 - Radiology Exams Ordered Rad Exams-Entire Visit: Radiology Procedures Category Date Time Status VENOUS UNILAT/LIMITED EXTREMIT [US] Urgent Exams 07/27/22 10:38 Completed - Discharge Disposition: Home, Self-Care Condition: Stable Prescriptions: New Acetaminophen 325 mg [Tylenol 325 mg] 650 mg PO Q4H PRN PRN tablet PRN Reason: Pain And/Or Fever HydrALAzine HCL 25 MG TAB [Apresoline 25 MG TABLET] 50 mg PO TID 14 Days #42 tablet Clonidine HCl 0.1 mg [Clonidine 0.1 mg Tablet] 0.1 mg PO BIDPRN PRN 15 Days #30 tablet PRN Reason: Hypertension Carvedilol 12.5 mg [Coreg 12.5 mg] 12.5 mg PO BID #60 tablet Amlodipine Besylate 5 mg [Norvasc 5 mg] 10 mg PO DAILY #30 tablet Aspirin EC 81 mg [Ecotrin 81 mg] 81 mg PO DAILY 30 Days #30 tablet Insulin Lispro [Humalog] 100 unit SQ UD PRN 30 Days #1 pkt PRN Reason: Hyperglycemia Discontinued Sitagliptin Phosphate 50 MG [Januvia 50 MG] 1 tab PO DAILY Carvedilol [Coreg ] 6.25 mg PO BID Benazepril HCl [Lotensin] 1 tab PO DAILY Glipizide 10 mg [Glucotrol 10 MG] 1 tab PO BID Amlodipine Besylate 5 mg [Norvasc 5 mg] 1 tab PO DAILY Atorvastatin Calcium [Lipitor 20MG Tablet] 1 tab PO HS Insulin Glargine,Hum.rec.anlog [Toujeo Solostar] 50 unit SQ DAILY Additional Instructions: GROUP HOME ORDERS: CONSISTENT CARB DIET ACHS ACCU CHECKS PATIENT TO WEAR CAM BOOT ON RIGHT LOWER EXTREMITY WITH AMBULATION DRESSING CHANGES CONSISTING OF BETADINE, ADAPTIC 4X4 UNNA BOOT WITH A COMPRESSION DRESSING TO RIGHT LOWER EXTREMITY WITH MODERATE COMPRESSION ON MONDAYS AND THURSDAYS PATIENT TO FOLLOW UP SCHEDULED SEE ATTACHED MED LIST Follow up with: LONNIE HOOK DPM [ACTIVE STAFF] - 08/05/22 8:00 am ISAAK RODRÍGUEZ [Primary Care Provider] -
== END 2022-07-28 18:10 | DRG 558 ==
LOC: ED 11:07 → MED SURG 14:11
PROVIDERS: ADMIT Family Medicine; ATTEND Family Medicine
PROC: 2W1LX6Z Compression of Right Lower Extremity using Pressure Dressing (ICD-10-PCS; principal; 2022-07-27)
DX: M62.82 Rhabdomyolysis (principal); L03.115 Cellulitis of right lower limb; I87.2 Venous insufficiency (chronic) (peripheral); W18.30XA Fall on same level, unspecified, initial encounter; R60.0 Localized edema; E78.5 Hyperlipidemia, unspecified; E11.9 Type 2 diabetes mellitus without complications; S92.351A Displaced fracture of fifth metatarsal bone, right foot, initial encounter for closed fracture; Z20.828 Contact with and (suspected) exposure to other viral communicable diseases; Z79.899 Other long term (current) drug therapy
CPT/HCPCS: 0241U; 28470; 29580; 36000; 36415; 70450; 71045; 72125; 73590; 80048; 80053; 81015; 82550; 82947; 83036; 83605; 83690; 83735; 83880; 84145; 84484; 85025; 85027; 87040; 87086; 93005; 93971; 96365; 96374; 96375; 99222; 99285; J0610; J1815; J1817; J2543; A9270-GY